=== PATIENT | female | born 1935 | race Caucasian/White ===

== ENCOUNTER 2022-11-26 12:55 | Inpatient (IN) | payer OTHER ==
[~2022-11-26] VITALS: Ht 154.9 cm; Wt 61.8 kg
[2022-11-26] MEDS ORDERED: SODIUM CHLORIDE 0.9% 1000ML BAG (SEPSIS BOLUS) IV ONE (13:15)
[2022-11-26] MEDS ORDERED: VANCOMYCIN 1G PREMIX 200 ML IV ONE (13:15)
[2022-11-26] MEDS ORDERED: PIPERACILLIN/TAZ 3.375G PREMIX 50 ML IV ONE (13:15)
[2022-11-26 13:22] LABS: BASOPHILS % 1.3 % (0.0-2.0); EOSINOPHILS % 1.2 % (0.0-5.0); HEMATOCRIT. 42.2 % (36.0-48.0); HEMOGLOBIN. 14.7 g/dL (12.0-16.0); LYMPHOCYTES % 19.1 % (20.0-50.0); MEAN CORPUSCULAR HEMOGLOBIN 32.6 pg (28.0-32.0); MEAN CORPUSCULAR HGB CONC 34.8 g/dL (31.0-37.0); MEAN CORPUSCULAR VOLUME 93.4 fL (81.0-99.0); MEAN PLATELET VOLUME 6.8 fl (7.4-10.4); MONOCYTES % 8.8 % (2.0-8.0); NEUTROPHILS % 69.6 % (40.0-76.0); PLATELET 395 x1000/uL (130-400); RED BLOOD CELL COUNT 4.51 mill/uL (4.2-5.4); WHITE BLOOD COUNT 10.2 x1000/uL (4.5-11.0)
[2022-11-26 13:35] LABS: AMMONIA 17 uMol/L (<32); INDEX HEMOLYSI 4 (1-3)
[2022-11-26 13:59] LABS: CHLORIDE 94 mEq/L (98-107); INDEX HEMOLYSI 4 (1-3); INDEX ICTERIC 1 (1-4); INDEX LIPEMIC 1 (1-3); SODIUM 123 mEq/L (136-145)
[2022-11-26 14:06] LABS: ALANINE AMINOTRANSFERASE 18 IU/L (13-61); ALBUMIN 3.4 g/dL (3.4-5.0); ASPARTATE AMINOTRANSFERASE 26 IU/L (15-37); BILIRUBIN TOTAL 0.9 mg/dL (0.1-1.0); CALCIUM 7.6 mg/dL (8.5-10.1); CARBON DIOXIDE 17 mEq/L (21-32); CREATININE 0.6 mg/dL (0.6-1.3); GLUCOSE 117 mg/dL (70-105); NT PRO B-TYPE NATRIURETIC PEP 2784 pg/mL (5-125); PROTEIN TOTAL 7.5 g/dL (6.0-8.3); TROPONIN I HIGH SENSITIVITY 43 ng/L (<54); UREA NITROGEN BLOOD 8 mg/dL (7-21)
[2022-11-26 14:16] LABS: POTASSIUM 4.9 mEq/L (3.5-5.1)
[2022-11-26 14:23] LABS: CLARITY URINE TURBID (CLEAR); COLOR URINE YELLOW (YELLOW); GLUCOSE URINE NEGATIVE (NEGATIVE); KETONES URINE 2+ (NEGATIVE); LEUKOCYTE ESTERASE URINE 3+ (NEGATIVE); NITRITE URINE NEGATIVE (NEGATIVE); OCCULT BLOOD URINE 2+ (NEGATIVE); PROTEIN URINE 1+ (NEGATIVE); SPECIFIC GRAVITY URINE 1.013 (1.005-1.030)
[2022-11-26 14:48] LABS: SQUAMOUS EPITHELIAL CELL URINE 3+ /lpf (RARE/1+); WBC URINE 50-100 /hpf (0-2)
[2022-11-26 14:49] LABS: BACTERIA URINE 2+
[2022-11-26 16:19] LABS: TROPONIN I HIGH SENSITIVITY 43 ng/L (<54)
[2022-11-26 16:21] LABS: PROTHROMBIN TIME 11.2 sec (9.6-11.0)
[2022-11-26] MEDS: ASPIRIN 81MG TABLET PO ONE ×2 (16:21→16:22)
[2022-11-26 19:43] VITALS: BP_SYST 155; BP_SYST 163; BP_DIAS 77; BP_DIAS 92; PULSE 84; RESP 19; TEMP 98; TEMP 98.6
[2022-11-26] MEDS ORDERED: ONDANSETRON HCL 4MG/2ML INJ IV PRN (20:45)
[2022-11-26] MEDS ORDERED: ACETAMINOPHEN 325MG TABLET PO PRN (20:45)
[2022-11-26] MEDS ORDERED: CLONIDINE 0.1MG TABLET PO PRN (20:45)
[2022-11-26] MEDS ORDERED: SODIUM CHLORIDE 0.45% 1,000 ML IV ONE (20:45)
[2022-11-26] MEDS ORDERED: KEPP500 MT (22:04)
[2022-11-26] MEDS ORDERED: LEVO50TA8 MT (22:04)
[2022-11-27 00:23] LABS: CREATINE KINASE MB FRACTION 2.2 ng/mL (0.5-3.6)
[2022-11-27 04:00] VITALS: BP 120/69; PULSE 90; RESP 20; TEMP 98.5
[2022-11-27 07:55] LABS: CREATINE KINASE MB FRACTION 2.4 ng/mL (0.5-3.6)
[2022-11-27 08:00] VITALS: BP 124/100; PULSE 86; RESP 18; TEMP 98
[2022-11-27] MEDS ORDERED: INFLUENZA VACCINE 05/PF 0.5 ML SYRINGE IM ONE (09:00)
[2022-11-27] MEDS: LEVETIRACETAM 500MG TABLET PO SCH ×2 (09:35→21:06)
[2022-11-27] MEDS: LEVOTHYROXINE SODIUM 50MCG TABLET PO SCH (09:35)
[2022-11-27] MEDS: ENOXAPARIN 40MG/0.4ML SYR SUBCUT SCH (09:36)
[2022-11-27 12:00] VITALS: BP 127/99; PULSE 92; RESP 18; TEMP 97.6
[2022-11-27 12:36] LABS: CHLORIDE 97 mEq/L (98-107); INDEX HEMOLYSI 4 (1-3); INDEX ICTERIC 1 (1-4); INDEX LIPEMIC 1 (1-3); SODIUM 125 mEq/L (136-145)
[2022-11-27 12:41] LABS: POTASSIUM 4.1 mEq/L (3.5-5.1)
[2022-11-27 12:47] LABS: ALANINE AMINOTRANSFERASE 19 IU/L (13-61); ALBUMIN 3.7 g/dL (3.4-5.0); ASPARTATE AMINOTRANSFERASE 30 IU/L (15-37); BILIRUBIN TOTAL 1.1 mg/dL (0.1-1.0); CALCIUM 8.3 mg/dL (8.5-10.1); CARBON DIOXIDE 17 mEq/L (21-32); CREATININE 0.5 mg/dL (0.6-1.3); GLUCOSE 89 mg/dL (70-105); PROTEIN TOTAL 8.1 g/dL (6.0-8.3); UREA NITROGEN BLOOD 6 mg/dL (7-21)
[2022-11-27] MEDS: SODIUM CHLORIDE 0.9% 1,000 ML IV SCH (13:58)
[2022-11-27] MEDS ORDERED: AMLO2.5T45 PO (15:38)
[2022-11-27] MEDS ORDERED: ASPI81TA43 PO (15:38)
[2022-11-27] MEDS ORDERED: CHOL100046 PO (15:38)
[2022-11-27] MEDS ORDERED: LEVO25TA7 PO (15:38)
[2022-11-27 16:00] VITALS: BP 173/96; PULSE 95; RESP 18; TEMP 98.2
[2022-11-27] MEDS: AMLODIPINE 10MG TABLET PO SCH (17:44)
[2022-11-27 17:45] VITALS: BP 141/85
[2022-11-27 17:58] LABS: BASOPHILS % 0.6 % (0.0-2.0); EOSINOPHILS % 0.7 % (0.0-5.0); LYMPHOCYTES % 11.2 % (20.0-50.0); MEAN CORPUSCULAR HGB CONC 34.2 g/dL (31.0-37.0); MEAN CORPUSCULAR VOLUME 93.6 fL (81.0-99.0); MEAN PLATELET VOLUME 7.1 fl (7.4-10.4); MONOCYTES % 9.4 % (2.0-8.0); NEUTROPHILS % 78.1 % (40.0-76.0); PLATELET 367 x1000/uL (130-400); RED CELL DISTRIBUTION WIDTH 12.8 % (11.6-14.6); WHITE BLOOD COUNT 11.5 x1000/uL (4.5-11.0)
[2022-11-27 18:20] LABS: INDEX HEMOLYSI 1 (1-3)
[2022-11-27 18:23] LABS: AMMONIA 15 uMol/L (<32)
[2022-11-27 20:00] VITALS: BP 140/96; PULSE 98; RESP 20; TEMP 96.9
[2022-11-28] VITALS: BP 115/73; PULSE 79; RESP 18; TEMP 97.2
[2022-11-28] MEDS: SODIUM CHLORIDE 0.9% 1,000 ML IV SCH ×2 (01:58→15:35)
[2022-11-28 04:00] VITALS: BP 175/98; PULSE 92; RESP 18; TEMP 97.6
[2022-11-28 08:00] VITALS: BP 119/64; PULSE 64; RESP 18; TEMP 97.9
[2022-11-28] MEDS: LEVETIRACETAM 500MG TABLET PO SCH (08:26)
[2022-11-28] MEDS: LEVOTHYROXINE SODIUM 50MCG TABLET PO SCH (08:26)
[2022-11-28] MEDS: AMLODIPINE 10MG TABLET PO SCH (08:26)
[2022-11-28] MEDS: ENOXAPARIN 40MG/0.4ML SYR SUBCUT SCH (08:27)
[2022-11-28 10:05] LABS: INDEX HEMOLYSI 1 (1-3); INDEX ICTERIC 1 (1-4); INDEX LIPEMIC 1 (1-3)
[2022-11-28 10:24] LABS: CALCIUM 8.5 mg/dL (8.5-10.1); CARBON DIOXIDE 20 mEq/L (21-32); CHLORIDE 103 mEq/L (98-107); CREATININE 0.5 mg/dL (0.6-1.3); GLUCOSE 78 mg/dL (70-105); POTASSIUM 3.1 mEq/L (3.5-5.1); SODIUM 133 mEq/L (136-145); UREA NITROGEN BLOOD 6 mg/dL (7-21)
[2022-11-28 12:00] VITALS: BP 128/74; PULSE 67; RESP 18; TEMP 97.9
[2022-11-28] MEDS: MEROPENEM 500 MG in SODIUM CHLORIDE 0.9% 50 ML IV SCH ×2 (12:58→21:40)
[2022-11-28 16:00] VITALS: BP 113/62; PULSE 74; RESP 18; TEMP 97.6
[2022-11-28 16:59] LABS: BASOPHILS % 0.8 % (0.0-2.0); EOSINOPHILS % 4.6 % (0.0-5.0); HEMOGLOBIN. 12.5 g/dL (12.0-16.0); LYMPHOCYTES % 23.5 % (20.0-50.0); MEAN CORPUSCULAR HEMOGLOBIN 31.8 pg (28.0-32.0); MEAN CORPUSCULAR HGB CONC 33.9 g/dL (31.0-37.0); MEAN CORPUSCULAR VOLUME 93.8 fL (81.0-99.0); MEAN PLATELET VOLUME 6.7 fl (7.4-10.4); MONOCYTES % 11.5 % (2.0-8.0); NEUTROPHILS % 59.6 % (40.0-76.0); PLATELET 354 x1000/uL (130-400); RED BLOOD CELL COUNT 3.94 mill/uL (4.2-5.4); RED CELL DISTRIBUTION WIDTH 12.9 % (11.6-14.6); WHITE BLOOD COUNT 10.3 x1000/uL (4.5-11.0)
[2022-11-28 20:00] VITALS: BP 127/72; PULSE 68; RESP 19; TEMP 97.3
[2022-11-28] MEDS ORDERED: HYDRALAZINE 20MG/ML VIAL IV PRN (20:30)
[2022-11-28] MEDS: LEVETIRACETAM 500MG PREMIX 100 ML IV SCH (22:00)
[2022-11-29] VITALS: BP 132/60; PULSE 65; RESP 18; TEMP 96.8
[2022-11-29 04:00] VITALS: BP 140/86; PULSE 74; RESP 18; TEMP 98.2
[2022-11-29] MEDS: SODIUM CHLORIDE 0.9% 1,000 ML IV SCH (04:52)
[2022-11-29] MEDS: MEROPENEM 500 MG in SODIUM CHLORIDE 0.9% 50 ML IV SCH (05:14)
[2022-11-29] MEDS ORDERED: LIDOCAINE HCL 1% 10 MG/ML 10ML VIAL ONE (07:05)
[2022-11-29] MEDS: LEVETIRACETAM 500MG PREMIX 100 ML IV SCH (09:27)
[2022-11-29] MEDS: ENOXAPARIN 40MG/0.4ML SYR SUBCUT SCH (09:28)
[2022-11-29] MEDS: LEVOTHYROXINE SODIUM 50MCG TABLET PO SCH (09:28)
[2022-11-29] MEDS: AMLODIPINE 10MG TABLET PO SCH (09:45)
[2022-11-29 10:00] VITALS: BP 140/67; PULSE 90; TEMP 97.8; O2SAT 97
== END 2022-11-29 10:33 | disposition home or self-care (01) | DRG 71 ==
LOC: ER 12:55 → 7WST 20:50
PROVIDERS: ADMIT Internal Medicine; ATTEND Internal Medicine
PROC: 02H633Z Insertion of Infusion Device into Right Atrium, Percutaneous Approach (ICD-10-PCS; principal; 2022-11-29)
PROC: B548ZZA Ultrasonography of Superior Vena Cava, Guidance (ICD-10-PCS; 2022-11-29)
DX: G93.41 Metabolic encephalopathy (principal); E87.1 Hypo-osmolality and hyponatremia; N39.0 Urinary tract infection, site not specified; I51.7 Cardiomegaly; J45.909 Unspecified asthma, uncomplicated; G40.909 Epilepsy, unspecified, not intractable, without status epilepticus; I95.9 Hypotension, unspecified; I10 Essential (primary) hypertension
CPT/HCPCS: 36415; 36573; 71045; 80048; 80053; 81003; 82140; 82553; 82962; 83605; 83880; 84145; 84300; 84484; 85025; 87186; 87426; 92610; 93005; 97162; 97530; 99285; C1725; C9803; J1650; J1953; J2185; J2543; J3370; J3490; J7030